=== PATIENT | male | born 1975 | race Caucasian/White ===

== ENCOUNTER → 2018-04-14 | Outpatient (CLI) | payer OTHER | LOC: M RAD 12:24 | DX: M54.5 Low back pain (principal) | CPT/HCPCS: 72110 ==

== ENCOUNTER 2019-03-15 10:08 | Emergency (ER) | payer OTHER ==
[~2019-03-15] VITALS: Ht 182.9 cm; Wt 91.0 kg
[2019-03-15 10:09] VITALS: BP 144/83
[2019-03-15] MEDS ORDERED: INDO50CA91 PO (10:43)
[2019-03-15] MEDS ORDERED: PRED20TA PO (10:43)
[2019-03-15] MEDS ORDERED: INDOMETHACIN 25 MG CAP PO ONE (10:45)
[2019-03-15] MEDS ORDERED: predniSONE 20 MG TAB PO ONE (10:45)
== END 2019-03-15 11:00 | disposition home or self-care (01) ==
LOC: M ED 10:08
DX: M10.071 Idiopathic gout, right ankle and foot (principal); M19.071 Primary osteoarthritis, right ankle and foot; F17.290 Nicotine dependence, other tobacco product, uncomplicated

== ENCOUNTER 2019-10-27 05:15 | Inpatient (IN) | payer OTHER, SELFPAY ==
[~2019-10-27] VITALS: Ht 182.9 cm; Wt 98.0 kg
[~2019-10-27 05:15] MED LIST: INDO50CA91 PO; PRED20TA PO
[2019-10-27 05:43] LABS: HEMATOCRIT 46.6 % (42.0-52.0); HEMOGLOBIN 15.9 g/dl (13.5-17.5); MEAN CORPUSCULAR HEMOGLOBIN 29.6 pg (27.0-33.0); MEAN CORPUSCULAR HGB CONC 34.1 g/dl (32.0-36.5); MEAN CORPUSCULAR VOLUME 86.8 fl (80.0-96.0); PLATELET COUNT, AUTOMATED 266 10^3/uL (150-450); RED BLOOD COUNT 5.37 10^6/uL (4.30-6.10); WHITE BLOOD COUNT 9.9 10^3/uL (4.0-10.0)
[2019-10-27 06:13] LABS: ACETAMINOPHEN LEVEL < 2.0 UG/ML (10.0-30.0); ALBUMIN 4.3 GM/DL (3.2-5.2); ALT/SGPT 36 U/L (12-78); AMPHETAMINES LEVEL URINE NEGATIVE (NEGATIVE); BARBITURATES URINE NEGATIVE (NEGATIVE); BENZODIAZEPINES URINE POSITIVE (NEGATIVE); BILIRUBIN,DIRECT 0.1 MG/DL (0.0-0.2); BILIRUBIN,TOTAL 0.6 MG/DL (0.2-1.0); BLOOD UREA NITROGEN 12 MG/DL (7-18); CALCIUM LEVEL 9.1 MG/DL (8.5-10.1); CANNABINOIDS URINE NEGATIVE (NEGATIVE); CARBON DIOXIDE LEVEL 27 MEQ/L (21-32); CHLORIDE LEVEL 108 MEQ/L (98-107); COCAINE METABOLITE URINE NEGATIVE (NEGATIVE); CREATININE FOR GFR 1.01 MG/DL (0.70-1.30); ETHYL ALCOHOL (ETHANOL) < 0.003 % (0.000-0.010); GLOMERULAR FILTRATION RATE > 60.0 (>60); GLUCOSE, FASTING 84 MG/DL (70-100); METHADONE URINE NEGATIVE (NEGATIVE); OPIATES URINE NEGATIVE (NEGATIVE); PHENCYCLIDINE URINE NEGATIVE (NEGATIVE); POTASSIUM SERUM 3.6 MEQ/L (3.5-5.1); SALICYLATE LEVEL < 1.7 MG/DL (5.0-30.0); SODIUM LEVEL 141 MEQ/L (136-145)
[2019-10-27] MEDS ORDERED: MAALOX 30 ML SUSP *UDC PO PRN (07:15)
[2019-10-27] MEDS ORDERED: NICOTINE 21MG/24HR 1 EA TRANSDERMAL TD PRN (07:15)
[2019-10-27] MEDS ORDERED: MOM 30ML SUSPENSION UDC PO PRN (07:15)
[2019-10-27] MEDS ORDERED: OLANZapine ORAL DISINTEGRATING TAB 5MG PO PRN (07:15)
[2019-10-27] MEDS ORDERED: traZODone 50 MG TAB PO PRN (07:15)
[2019-10-27] MEDS: diphenhydrAMINE 25MG CAP PO SCH ×2 (08:43→21:10)
[2019-10-27] MEDS: haloperidoL 5 MG TAB PO SCH ×4 (08:43→21:10)
[2019-10-27] MEDS: ACETAMINOPHEN TAB 650MG DOSE (2X325MG) PO PRN (10:24)
[2019-10-27 10:30] VITALS: BP 132/80
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
[2019-10-27] MEDS: NICOTINE POLACRILEX 2 MG GUM PO PRN ×3 (16:16→21:13)
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
[2019-10-27 18:59] VITALS: BP 131/63
[2019-10-28] MEDS: NICOTINE POLACRILEX 2 MG GUM PO PRN ×3 (06:10→11:43)
[2019-10-28] MEDS: haloperidoL 5 MG TAB PO SCH (06:10)
[2019-10-28 06:24] VITALS: BP 114/63
[2019-10-28] MEDS: diphenhydrAMINE 25MG CAP PO SCH (08:14)
[2019-10-28] MEDS: ACETAMINOPHEN TAB 650MG DOSE (2X325MG) PO PRN (08:14)
[2019-10-28] MEDS ORDERED: HALO5TA PO (10:44)
[2019-10-28] MEDS ORDERED: NICO2GUM PO (10:44)
[2019-10-28] MEDS ORDERED: TRAZ-252 PO (10:44)
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
== END 2019-10-28 12:35 | disposition home or self-care (01) | DRG 752 ==
LOC: M ED 05:15 → M ED INP 07:05 → M PSY 09:02
PROVIDERS: ADMIT Psychiatry & Neurology Psychiatry; ATTEND Psychiatry & Neurology Addiction Medicine
DX: F60.2 Antisocial personality disorder (principal); F17.200 Nicotine dependence, unspecified, uncomplicated; R45.851 Suicidal ideations; Z79.899 Other long term (current) drug therapy